=== PATIENT | female | born 1975 | race Two or more races ===

== ENCOUNTER 2024-12-21 06:36 | Day surgery (SDC) | payer OTHER ==
[2024-12-17 14:55] VITALS: BP 160/95
[2024-12-17 15:47] LABS: ALT/SGPT 39.0 U/L (12-78); AST/SGOT 13.0 U/L (15-37); BILIRUBIN TOTAL 0.37 mg/dL (0.3-1.2); BUN CREA RATIO 11.0 (7.0-25.0); CREATININE SERUM 0.84 mg/dL (0.55-1.02); GFR 71.48; GLOBULINA 4.0 G/DL (2.4-3.5); GLUCOSE FASTING 91.0 mg/dL (65-100); OSMOLALITY SERUM 285.0 MOSM/KG (275-295)
[~2024-12-21] VITALS: Ht 165.1 cm; Wt 68.9 kg
[~2024-12-21 06:36] MED LIST: LOSARTAN-HCTZ1 EAC1 PO
[2024-12-21] MEDS ORDERED: POVIDONE-IODINE 118 ML BOTT TOP ONE (13:15)
[2024-12-21] MEDS ORDERED: MORPHINE SULFATE 4 MG/ML VIAL IV ONE (15:30)
== END 2024-12-21 17:15 | disposition home or self-care (01) ==
LOC: CIR.AMB 06:36
PROVIDERS: ATTEND Obstetrics & Gynecology
DX: N93.8 Other specified abnormal uterine and vaginal bleeding (principal)